=== PATIENT | female | born 1945 | race Caucasian/White ===

== ENCOUNTER 2020-01-03 10:02 | Outpatient (CLI) | payer MEDICARE, OTHER, SELFPAY ==
--- NOTE | ~2020-01-03 | MM_ITS ---
EXAMINATION: MM screening awais BI w eli HISTORY: Screening mammogram TECHNIQUE: Craniocaudal and mediolateral oblique 3-D tomosynthesis images were obtained and synthetic 2-D images were generated. CAD analysis was submitted and interpreted. COMPARISON: 09/08/2018, 01/06/2014, 01/04/2013, 12/08/2011 bilateral digital mammogram examinations BREAST PARENCHYMAL COMPOSITION: There are scattered areas of fibroglandular density. FINDINGS: Stable mild asymmetric density in the posterior aspect of the lower outer quadrant of the l eft breast. There is no evidence of suspicious mass, calcification, or architectural distortion to huerta ggest malignancy in either breast. There has been no suspicious interval change. IMPRESSION: 1. No mammographic evidence of malignancy. 2. Recommend routine screening mammography in one year. BI-RADS Category 2: Benign finding(s). Reviewed, dictated and finalized at location A.
== END 2020-01-03 10:03 | disposition home or self-care (01) ==
PROVIDERS: PCP Internal Medicine; Visit Provider Internal Medicine
DX: Z12.31 Encounter for screening mammogram for malignant neoplasm of breast (principal)
CPT/HCPCS: 77063; 77067

== ENCOUNTER 2020-06-15 07:51 | Outpatient (CLI) | payer MEDICARE, OTHER, SELFPAY ==
[2020-06-15 09:18] LABS: Alanine Aminotransferase 18 U/L (4-35); Albumin Level 4.4 g/dL (3.5-5.1); Alkaline Phosphatase 44 U/L (38-126); Anion Gap 5 mmol/L (8-16); Aspartate Amino Transferase 34 U/L (14-36); Bilirubin,Total 0.4 mg/dL (0.2-1.3); Blood Urea Nitrogen 12 mg/dL (7-17); Calcium 9.2 mg/dL (8.4-10.2); Carbon Dioxide 28 mmol/L (22-30); Chloride 100 mmol/L (98-107); Cholesterol 181 mg/dL (0-200); Estimated Glomerular Filt Rate > 60; Glucose 89 mg/dL (65-105); HDL Direct 85 mg/dL; Potassium 4.5 mmol/L (3.4-5.0); Sodium 133 mmol/L (137-145); Triglycerides 71 mg/dL (<150)
[2020-06-15 09:29] LABS: LDL Cholesterol Direct 73 mg/dL
== END 2020-06-15 07:52 | disposition home or self-care (01) ==
PROVIDERS: Family Provider Internal Medicine; PCP Internal Medicine; Visit Provider Internal Medicine
DX: E78.5 Hyperlipidemia, unspecified (principal); Z79.899 Other long term (current) drug therapy; I10 Essential (primary) hypertension; E03.9 Hypothyroidism, unspecified
CPT/HCPCS: 36415; 80053; 80061; 84443

== ENCOUNTER 2020-07-18 12:51 | Outpatient (CLI) | payer MEDICARE, OTHER, SELFPAY ==
--- NOTE | ~2020-07-18 | DEXA_ITS ---
Bone Density Report Name: Lorie Du Age: 75 Sex: Female Ethnicity: White Date of : 1945 Indication: postmenopausal osteoporosis; height loss; prior fracture; Referring Provider: Britney Lauren Study: Bone densitometry was performed. Exam Date: July 18, 2020 Accession number: [id number] Bone Density: Region BMD T-score Z-score Classification AP Spine (L1-L4) 0.717 -3.0 -0.6 Osteoporosis Femoral Neck (Left) 0.563 -2.6 -0.5 Osteoporosis Total Hip (Left) 0.718 -1.8 0.0 Osteopenia Total Hip Bilateral Avg 0.711 -1.9 -0.1 Osteopenia Femoral Neck (Right) 0.589 -2.3 -0.2 Osteopenia Total Hip (Right) 0.704 -2.0 -0.2 Osteopenia World Health Organization criteria for BMD impression classify patients as: Normal (T-score at or above -1.0), Osteopenia (T-score between -1.0 and -2.5), or Osteoporosis (T-score at or below -2.5). 10-year Fracture Risk: FRAX not reported because: Some T-score for Spine Total or Hip Total or Femoral Neck at or below -2.5 Previous Exams: Region Exam Age BMD T-score BMD Change BMD Change Date g/cm2 vs Baseline vs Previous AP Spine(L1-L4) 07/18/2020 75 0.717 -3.0 0.098(15.9%)# 0.021(3.0%) 12/04/2016 71 0.696 -3.2 0.078(12.6%)# 0.043(6.6%)# 12/04/2010 65 0.653 -3.6 0.035(5.6%)* 0.035(5.6%)* 12/01/2008 63 0.619 -3.9 Total Hip(Left) 07/18/2020 75 0.718 -1.8 0.012(1.7%)# -0.040(-5.2%)* 12/04/2016 71 0.758 -1.5 0.052(7.4%)# 0.039(5.4%)# 12/04/2010 65 0.719 -1.8 0.013(1.9%) 0.013(1.9%) 12/01/2008 63 0.706 -1.9 Total Hip(Right) 07/18/2020 75 0.704 -2.0 0.015(2.2%)# -0.027(-3.7%) 12/04/2016 71 0.731 -1.7 0.042(6.1%)# 0.038(5.6%)# 12/04/2010 65 0.692 -2.0 0.003(0.5%) 0.003(0.5%) 12/01/2008 63 0.689 -2.1 *Denotes significance at 95% confidence level, LSC for AP Spine = 0.022 g/cm2, LSC for Total Hip = 0.027 g/cm2 Clinical Information Provided by Patient: Has had a low trauma fracture Has used the following medications: Vitamin D, Calcium Patient maximum height was 64 Menopause Age: 39 Drinks caffeinated beverages Onset of menses at age 13 Number of children 3 Impression: The patient has established osteoporosis, based on the Total Spine T-score and the existence of a prior fracture. The patient has risk factors, including: previous fracture. The BMD for the Total Hip(Left) decreased, changing by -5.2% since the last DXA exam.
== END 2020-07-18 12:52 | disposition home or self-care (01) ==
LOC: ANHIMG 12:53
PROVIDERS: PCP Internal Medicine; Visit Provider Nurse Practitioner
DX: M81.0 Age-related osteoporosis without current pathological fracture (principal); M85.852 Other specified disorders of bone density and structure, left thigh; M85.851 Other specified disorders of bone density and structure, right thigh
CPT/HCPCS: 77080

== ENCOUNTER 2020-12-20 08:20 | Outpatient (CLI) | payer MEDICARE, OTHER, SELFPAY ==
[2020-12-20 09:03] LABS: Alanine Aminotransferase 20 U/L (4-35); Albumin Level 4.3 g/dL (3.5-5.1); Alkaline Phosphatase 64 U/L (38-126); Anion Gap 6 mmol/L (8-16); Aspartate Amino Transferase 32 U/L (14-36); Bilirubin,Total 0.2 mg/dL (0.2-1.3); Blood Urea Nitrogen 13 mg/dL (7-17); Calcium 9.5 mg/dL (8.4-10.2); Carbon Dioxide 28 mmol/L (22-30); Chloride 98 mmol/L (98-107); Cholesterol 187 mg/dL (0-200); Estimated Glomerular Filt Rate > 60; Glucose 87 mg/dL (65-110); HDL Direct 95 mg/dL; Potassium 4.4 mmol/L (3.4-5.0); Sodium 132 mmol/L (137-145); Triglycerides 42 mg/dL (<150)
[2020-12-20 09:13] LABS: LDL Cholesterol Direct 78 mg/dL
== END 2020-12-20 08:21 | disposition home or self-care (01) ==
PROVIDERS: PCP Internal Medicine; Visit Provider Nurse Practitioner
DX: E03.9 Hypothyroidism, unspecified (principal); E78.5 Hyperlipidemia, unspecified; E55.9 Vitamin D deficiency, unspecified; M81.0 Age-related osteoporosis without current pathological fracture
CPT/HCPCS: 36415; 80053; 80061; 82306; 84443

== ENCOUNTER 2021-04-10 08:57 | Inpatient (IN) | payer MEDICARE, OTHER, SELFPAY ==
[2021-04-10] VITALS (27 sets, daily range): BP systolic 96–118; BP diastolic 50–70; PULSE 65–75; RESP 16–24; TEMP 36.5–36.7; O2SAT 94–98; BMI 23.3
--- NOTE | ~2021-04-10 | XR_ITS ---
EXAMINATION: XR chest 1V portable EXAM DATE: 04/10/2021 09:34 INDICATION: Cough, weakness. TECHNIQUE: Portable AP frontal chest x-ray was obtained. Comparison is made to prior examination from 12/15/2012. FINDINGS The cardiomediastinal silhouette is prominent but magnified on this AP technique. Moderate a mount of diffusely indistinct reticulation new compared to 2013, could be edema or atypical pneumonia . Some component of chronic interstitial lung disease not excludable. No pneumothorax or pleural effu marianne. There is a dual lead pacemaker/AICD seen with leads projecting over the expected locations of t he right atrial appendage and right ventricle. There is aortic arteriosclerosis. The bones are osteop enic. There are bony degenerative changes. IMPRESSION: Moderate amount of bilateral abnormal reticulation, could be atypical pneumonia or edema . Reviewed, dictated and finalized at location A. EGE TEACHER IMPRESSION: Moderate amount of bilateral abnormal reticulation, could be atypi scott pneumonia or edema.
--- NOTE | 2021-04-10 09:23 | ED.GENADULT ---
HPI - General Adult General Chief complaint: Unspecified Stated complaint: don't feel good Time Seen by Provider: 04/10/21 09:09 Source: RN notes reviewed History of Present Illness HPI narrative: Patient presents emergency department from home for fever. Patient states that she has been having subjective fevers and chills for the past 5 days with a measured temperature this morning of 102.5 states that she did take Tylenol this morning. She states that with that she has had a mild cough she denies any rhinorrhea or sore throat denies any abdominal pain. States she has had some intermittent nausea vomiting she denies any diarrhea. Patient denies having any chest pain or shortness of Related Data Allergies Allergy/AdvReac Type Severity Reaction Status Date / Time No Known Allergies Allergy Mild Verified 01/24/21 10:36 Review of Systems Review of Systems: Gen.: D see HPI ENT: Denies congestion Respiratory: Denies shortness of breath or cough CV: Denies chest pain or palpitations GI: Denies abdominal pain reports intermittent nausea denies vomiting Musculoskeletal: Denies back pain or muscle pain Neuro: Denies numbness, tingling, weakness or focal weakness Skin: Denies rash Except as documented, all other systems reviewed and negative ON LICENSE OF [facility] Past Medical History Medical History Age-related osteoporosis without current pathological fracture Essential hypertension History of histoplasmosis Hypothyroidism, unspecified Vitamin D deficiency Family History Family History Sibling Patient's sister is in good health Carcinoma of colon Family history of coronary artery disease Father Cerebrovascular accident Mother Acute myocardial infarction, Onset Age: 84 Family history of diabetes mellitus in first degree relative Other Family history of lymphoma Social History Social History Smoking status: Never smoker Second hand tobacco smoke exposure: No Alcohol intake: never Exam Narrative: APPEARANCE: No acute distress, nontoxic, resting in bed EYES: EOMI HEENT: Normocephalic, atraumatic, OMM RESPIRATORY: No respiratory distress Clear to auscultation bilaterally with no rhonchi wheezing or rales. CARDIOVASCULAR: Regular rate and rhythm without murmurs rubs or gallops. ABDOMINAL: Soft, nontender, nondistended, no rebound or guarding MUSCULOSKELETAl: Moves all extremities. No clubbing, cyanosis or edema. NEURO: Awake and alert. Following commands, speech normal, no focal deficits SKIN:: Warm, dry. No rashes lesions or abrasions PSYCHIATRIC: Normal affect/mood, Course Course Emergency Course: Discussed with SAUL Coppola for Dr Alvarado presentation work-up agrees with admission at this time agrees with plan to test for Covid Discussed with patient and family results of workup and diagnosis. Discussed need for admission. Patient and family understand and agree to current treatment plan Vital Signs Vital signs: Vital Signs Temperature 97.7 F 04/10/21 09:22 Pulse Rate 75 04/10/21 09:22 Respiratory Rate 20 04/10/21 09:22 Blood Pressure 102/55 L 04/10/21 09:22 Pulse Oximetry 96 04/10/21 09:22 Temperature 97.7 F 04/10/21 09:22 Pulse Rate 75 04/10/21 09:22 Respiratory Rate 20 04/10/21 09:22 Blood Pressure 102/55 L 04/10/21 09:22 Pulse Oximetry 96 04/10/21 09:22 Medical Decision Making Vital Signs Vital Signs: Vital Signs Temperature 97.7 F 04/10/21 09:22 Pulse Rate 75 04/10/21 09:22 Respiratory Rate 20 04/10/21 09:22 Blood Pressure 102/55 L 04/10/21 09:22 Pulse Oximetry 96 04/10/21 09:22 Temperature 97.7 F 04/10/21 09:22 Pulse Rate 75 04/10/21 09:22 Respiratory Rate 20 04/10/21 09:22 Blood Pressure 102/55 L 04/10/21 09:22 Pulse Oximetry 96 04/10/21 09:22 Lab Data Result
[2021-04-10 10:51] LABS: Bilirubin Urine 1+ (Negative); Blood Urine 1+ (Negative); Glucose Urine UA Negative (Negative); Ketones Urine 1+ mg/dL (Negative); Leukocyte Esterase Ur Trace LEU/UL (Negative); Nitrate Urine Negative (Negative); Protein Urine 1+ mg/dL (Negative); Urobilinogen Urine 0.2 mg/dL (<2.0); pH Urine 6.5 (5.0-9.0)
[2021-04-10 10:58] LABS: Add Urine Microscopic? YES; Appearance Urine Sl Cloudy (Clear); Color Urine Dark Yellow (Yellow)
[2021-04-10 11:00] LABS: Alanine Aminotransferase 18 U/L (4-35); Albumin Level 3.7 g/dL (3.5-5.1); Alkaline Phosphatase 51 U/L (38-126); Anion Gap 10 mmol/L (8-16); Aspartate Amino Transferase 27 U/L (14-36); Bilirubin,Total 0.4 mg/dL (0.2-1.3); Blood Urea Nitrogen 15 mg/dL (7-17); Calcium 8.7 mg/dL (8.4-10.2); Carbon Dioxide 22 mmol/L (22-30); Chloride 95 mmol/L (98-107); Estimated CRCL calculation 39 ml/min; Estimated Glomerular Filt Rate > 60; Glucose 107 mg/dL (65-110); Sodium 127 mmol/L (137-145)
[2021-04-10 11:03] LABS: Hyaline Casts Urine 30-49 /lpf; Mucus Urine Moderate /lpf; Squamous Epithelial Cell Urine Few /hpf (Few)
[2021-04-10 11:06] LABS: Bacteria Urine 1+ /hpf
[2021-04-10 11:07] LABS: Lactic Acid Reflex 1.2 mmol/L (0.7-2.1)
[2021-04-10 11:09] LABS: NT Pro B Type Natriuretic Pept 1770 pg/mL (5-100)
[2021-04-10 11:18] LABS: Hematocrit 30.8 % (37.0-47.0); Hemoglobin 10.5 g/dL (12.0-15.0); Mean Corpuscular HGB Conc 34.1 g/dl (32-36); Mean Corpuscular Hemoglobin 30.7 pg (26-34); Mean Corpuscular Volume 90.1 fl (80-100); Mean Platelet Volume 9.9 fl (7.4-10.4); Platelet Count Result 173 k/mm3 (150-375); Red Blood Count 3.42 M/mm3 (4.2-5.4); Red Cell Distribution Width 14.1 % (11.5-14.5); White Blood Count 10.1 K/mm3 (4.5-10.0)
[2021-04-10] MEDS: SODIUM CHLORIDE 0.9% IV 1,000 ML 999 ML IV CONT (11:27)
[2021-04-10 11:30] LABS: Partial Thromboplastin Time 30.7 SECONDS (22.3-36.8)
[2021-04-10 11:41] LABS: Band Neutrophils Percent 18 % (0-6); Monocytes Percent Manual 5 % (3-9); Neutrophils Absolute Manual 9.29 K/mm3 (1.7-7.2); Neutrophils Percent Manual 74 % (46-73); Platelet Estimate Adequate (Adequate); Total Cells Counted 100
--- NOTE | 2021-04-10 13:00 | PC.NURSE ---
Called pharmacy x2 for azithromycin to start, has not called back or sent, charge nurse aware
--- NOTE | 2021-04-10 13:56 | PC.NURSE ---
Report given to Alisa KRAFT, no further questions or concerns informed her Azithromycin not started bc haven't received from pharmacy
--- NOTE | 2021-04-10 14:18 | PC.NURSE ---
CAROL soto states he is taking pt to room 331
[2021-04-10 18:05] LABS: Anion Gap 4 mmol/L (8-16); Blood Urea Nitrogen 12 mg/dL (7-17); Carbon Dioxide 25 mmol/L (22-30); Chloride 96 mmol/L (98-107); Estimated CRCL calculation 49 ml/min; Estimated Glomerular Filt Rate > 60; Glucose 136 mg/dL (65-110); Potassium 3.5 mmol/L (3.4-5.0); Sodium 125 mmol/L (137-145)
--- NOTE | 2021-04-10 19:19 | PM.IMHP ---
H&P: HPI History of Present Illness Date/Time: 04/10/21 19:19 this is a 76-year-old female patient who has been running a fever for the last 5 days. She had a T-max of 102.5?. She stated that she has had COVID in the past and she has had the full vaccine with [employer] plus the booster. The patient stated that she took Tylenol this morning and she has had a mild cough. She denies any sore throat or runny nose. She has had intermittent nausea and vomiting but no diarrhea. The patient has not had any urinary symptoms. Her white count is only mildly elevated at 10.1. Her H&H is 10.5 and 30.8. The patient stated that she just feels fatigued. Her band neutrophils 18 neutrophils 74. Sodium level 127 and then 125. Her glucose 136. Calcium is 8.0. COVID test is pending. There is only trace leukocyte Estrace in the urine. Chest x-ray was read as moderate amount of bilateral abnormal reticulation could be atypical pneumonia or edema. The patient was started on IV fluid, Rocephin, and azithromycin. The patient is being admitted to observation status on the date of service of 04/10/2021. Chief Complaint: Fever Review of Systems Review of Systems: All systems reviewed & are unremarkable except as noted in HPI and below Constitutional: Constitutional: Reports as per HPI and Reports no additional constitutional complaints Eyes: Eyes: Reports as per HPI and Reports no additional eye complaints ENT: Reports system reviewed and no additional complaints, except as documented and Reports Normal hearing present Cardiovascular: Cardiovascular: Reports no additional cardiovascular complaints Respiratory: Respiratory: Reports no additional respiratory complaints and Reports no additional respiratory complaints Gastrointestinal: Gastrointestinal: Reports as per HPI and Reports no additional gastrointestinal complaints Musculoskeletal: Musculoskeletal: Reports no additional musculoskeletal complaints Integumentary/Breasts: Skin/Breast: Reports system reviewed and no additional complaints, except as docu and Reports as per HPI Neurologic: Reports system reviewed and no additional complaints, except as documented, Reports as per HPI and Reports Normal hearing present Psychiatric: Psychiatric: Reports no additional psychiatric complaints and Reports as per HPI Endocrine: Endocrine: Reports no additional endocrine complaints Hematologic/Lymphatic: Hematologic/Lymphatic: Reports no additional hematologic/lymphatic complaints Allergic/Immunologic: Allergic/Immunologic: Reports no additional allergic/immunologic complaints [facility] Past Medical History Medical History (Updated 04/10/21 @ 19:48 by Anat Saleh NP) Acute UTI Age-related osteoporosis without current pathological fracture Bronchitis Cough Essential hypertension History of histoplasmosis Hypothyroidism, unspecified Overweight (04/18/15) Vitamin D deficiency Weakness White coat syndrome with high blood pressure but without hypertension Surgical History Surgical History (Updated 04/10/21 @ 19:39 by Anat Saleh NP) History of cataract extraction S/P ORIF (open reduction internal fixation) fracture Left wrist Status cardiac pacemaker Family History Family History (Updated 04/10/21 @ 19:38 by Anat Saleh NP) Sibling Patient's sister is in good health Carcinoma of colon Family history of coronary artery disease Father Cerebrovascular accident Mother Acute myocardial infarction, Onset Age: 84 Family history of diabetes mellitus in first degree relative Son Lymphoma Remission Daughter Lymphoma Cc00 Other Family history of lymphoma Social History Social History (Updated 04/10/21 @ 19:40 by Anat Saleh NP) Social History: The patient had 2 children a son and daughter and the daughter's past. She is retired from farming. She lives with her who is the durable power of health care attorney for healthcare. Patient is lifelong nonsmoke
[2021-04-10] MEDS: SODIUM CHLORIDE 0.9% IV 1,000 ML 75 ML IV CONT (22:14)
[2021-04-10 22:24] LABS: Anion Gap 4 mmol/L (8-16); Blood Urea Nitrogen 12 mg/dL (7-17); Calcium 8.3 mg/dL (8.4-10.2); Carbon Dioxide 25 mmol/L (22-30); Chloride 95 mmol/L (98-107); Estimated CRCL calculation 49 ml/min; Estimated Glomerular Filt Rate > 60; Glucose 91 mg/dL (65-110); Potassium 3.4 mmol/L (3.4-5.0); Sodium 124 mmol/L (137-145)
[2021-04-11] VITALS: BP 120/62; PULSE 60; RESP 20; TEMP 36.6; O2SAT 93
[2021-04-11 04:00] VITALS: BP 143/74; PULSE 60; RESP 20; TEMP 36.4; O2SAT 96
[2021-04-11 04:11] LABS: Sodium Urine Random 11 meq/L
[2021-04-11] MEDS: LEVOTHYROXINE SODIUM 50 MCG TABLET PO (06:18)
[2021-04-11 07:08] LABS: Basophils Percent Auto 0.2 % (0.2-1.2); Eosinophils Absolute Auto 0.3 K/mm3 (0-0.3); Eosinophils Percent Auto 5.7 % (0-4.4); Hematocrit 30.8 % (37.0-47.0); Hemoglobin 10.5 g/dL (12.0-15.0); Immature Granulocyte Absolute 0.02 K/mm3 (0.00-0.031); Immature Granulocyte Percent A 0.4 % (0-0.5); Lymphocytes Absolute Auto 0.83 K/mm3 (0.9-3.2); Lymphocytes Percent Auto 17.6 % (18.3-44.2); Mean Corpuscular HGB Conc 34.1 g/dl (32-36); Mean Corpuscular Hemoglobin 29.8 pg (26-34); Mean Corpuscular Volume 87.5 fl (80-100); Mean Platelet Volume 9.8 fl (7.4-10.4); Monocytes Absolute Auto 0.4 K/mm3 (0.1-0.6); Monocytes Percent Auto 7.4 % (2.6-8.5); Neutrophils Absolute Auto 3.2 K/mm3 (1.3-6.7); Neutrophils Percent Auto 68.7 % (45.5-73.1); Platelet Count Result 199 k/mm3 (150-375); Red Blood Count 3.52 M/mm3 (4.2-5.4); Red Cell Distribution Width 14.1 % (11.5-14.5); White Blood Count 4.7 K/mm3 (4.5-10.0)
[2021-04-11 07:44] LABS: Alanine Aminotransferase 16 U/L (4-35); Albumin Level 3.2 g/dL (3.5-5.1); Alkaline Phosphatase 46 U/L (38-126); Anion Gap 4 mmol/L (8-16); Aspartate Amino Transferase 21 U/L (14-36); Bilirubin,Total 0.3 mg/dL (0.2-1.3); Blood Urea Nitrogen 10 mg/dL (7-17); Calcium 9.1 mg/dL (8.4-10.2); Carbon Dioxide 28 mmol/L (22-30); Chloride 101 mmol/L (98-107); Estimated CRCL calculation 49 ml/min; Estimated Glomerular Filt Rate > 60; Glucose 88 mg/dL (65-110); Lipase 37 U/L (23-300); Magnesium 1.7 mg/dL (1.6-2.3); Potassium 3.4 mmol/L (3.4-5.0); Sodium 133 mmol/L (137-145)
--- NOTE | 2021-04-11 07:51 | PM.IMPN ---
Progress Note: A&P Assessment and Plan (1) Community acquired pneumonia: Code(s): J18.9 - Pneumonia, unspecified organism Status: Acute Assessment and Plan: CXR with reticular pattern concerning for possible atyical pneumonia. BCX w/ NG. COVID 19 PCR Negative. -Will switch ceftriaxone-->Augmentin 875 mg BID -Continue azithromycin but change to oral. (2) Acute hyponatremia: Code(s): E87.1 - Hypo-osmolality and hyponatremia Status: Acute Assessment and Plan: Hyponatremia likely 2/2 to pneumonia. Sodium 133 this morning with resolution of patient weakness. --F/U urine studies (3) Hypothyroidism, unspecified: Code(s): E03.9 - Hypothyroidism, unspecified Status: Acute Assessment and Plan: TSH 1.21 and on levothyroxine 50 mcg daily. -Continue home levothyroxine. (4) Status cardiac pacemaker: Code(s): Z95.0 - Presence of cardiac pacemaker Status: Acute Assessment and Plan: Chronic (5) Suspected COVID-19 virus infection: Code(s): Z20.822 - Contact with and (suspected) exposure to COVID-19 Status: Acute Assessment and Plan: COVID 19 PCR is negative. -Discontinue droplet precautions (6) Hyperlipidemia LDL goal <100: Code(s): E78.5 - Hyperlipidemia, unspecified Status: Acute Assessment and Plan: Continue with home atorvastation. Subjective Date/time seen: Date of Service 04/11/21 07:51 Patient says she feels great other than a slight cough. Denies fever, chills, night sweats. Review of Systems Constitutional: Constitutional: Denies excessive sweating Respiratory: Respiratory: Denies chest congestion, Reports cough and Denies dyspnea Exam Narrative: GENERAL: NAD, cooperative HEENT: Normocephalic, atraumatic, anicteric, nares clear, oropharynx moist and clear, dentition ok NECK: Supple CV: Normal S1, S2, RRR, No MRG RESP: Crackles to L. base. R. clear to auscultation Abdomen: Soft, non-tender, non-distended, +BS EXTREMITIES: Warm and well perfused, no clubbing, cyanosis, or edema. +2 Distal pulses bilaterally. SKIN: warm, dry and intact. NEURO:CN 2-12 grossly intact. Objective Data Vital Signs Vital Signs: Vital Signs - 24 hr 04/10/21 09:22 04/10/21 11:26 04/10/21 11:30 Temperature 97.7 F Pulse Rate 75 67 70 Respiratory Rate 20 21 H 20 Blood Pressure 102/55 L 104/52 L Pulse Oximetry 96 96 94 04/10/21 11:31 04/10/21 11:45 04/10/21 11:46 Temperature Pulse Rate 67 70 68 Respiratory Rate 20 20 21 H Blood Pressure 112/53 L Pulse Oximetry 94 96 96 04/10/21 12:00 04/10/21 12:01 04/10/21 12:15 Temperature Pulse Rate 68 67 66 Respiratory Rate 19 21 H 24 H Blood Pressure 113/53 L Pulse Oximetry 96 95 96 04/10/21 12:16 04/10/21 12:30 04/10/21 12:31 Temperature Pulse Rate 69 69 68 Respiratory Rate 22 H 24 H 22 H Blood Pressure 118/50 L 109/52 L Pulse Oximetry 96 98 98 04/10/21 12:45 04/10/21 12:46 04/10/21 13:00 Temperature Pulse Rate 70 69 75 Respiratory Rate 22 H 22 H Blood Pressure 96/70 L Pulse Oximetry 97 97 04/10/21 13:05 04/10/21 13:15 04/10/21 13:26 Temperature Pulse Rate 65 66 67 Respiratory Rate 22 H 23 H 22 H Blood Pressure 113/56 L Pulse Oximetry 97 04/10/21 13:56 04/10/21 14:00 04/10/21 14:01 Temperature Pulse Rate 72 68 67 Respiratory Rate 18 23 H Blood Pressure 107/58 L Pulse Oximetry 97 96 04/10/21 14:15 04/10/21 14:16 04/10/21 14:40 Temperature Pulse Rate 65 66 Respiratory Rate 22 H 23 H Blood Pressure 106/53 L Pulse Oximetry 98 97 94 04/10/21 14:52 04/10/21 14:56 04/10/21 20:00 Temperature 98.0 F 98.0 F 97.9 F Pulse Rate 67 67 67 Respiratory Rate 16 16 20 Blood Pressure 100/55 L 100/55 L 105/59 L Pulse Oximetry 94 94 95 04/11/21 00:00 04/11/21 04:00 Temperature 98 F 97.5 F L Pulse Rate 60 60 Respiratory Rate 20 20 Blood Pressure 120/62 143/74 H Pulse Oximetr
[2021-04-11 08:00] VITALS: BP 126/57; PULSE 61; RESP 18; TEMP 36.2; O2SAT 99
[2021-04-11 08:09] LABS: Lactate Dehydrogenase 347 U/L (313-618)
[2021-04-11] MEDS: POTASSIUM CHLORIDE 20 MEQ TABLET 40 MEQ PO (09:13)
[2021-04-11] MEDS: CALCIUM CARBONATE (TUMS) 500 MG (200 MG ELEMENTAL) PO (09:14)
[2021-04-11] MEDS: CHOLECALCIFEROL 1,000 UNITS TABLET 2000 UNITS PO (09:14)
[2021-04-11] MEDS: MULTIVITAMINS THERAPEUTIC TAB (*BKC) 2 TABLET BY MOUTH (09:14)
[2021-04-11] MEDS: ATORVASTATIN 10 MG TABLET BY MOUTH (09:15)
[2021-04-11] MEDS: ENOXAPARIN 40 MG/0.4 ML SYRINGE SUB-Q (09:15)
[2021-04-11 12:00] VITALS: BP 139/63; PULSE 59; RESP 16; TEMP 36.6; O2SAT 99
[2021-04-11] MEDS: POTASSIUM CHLORIDE 20 MEQ TABLET PO (12:31)
[2021-04-11 15:23] LABS: SARS-CoV-2 RNA PCR Negative
--- NOTE | 2021-04-11 16:47 | PM.DS ---
DS: Admitting Diagnosis Discharge Date 04/11/2021 Admitting Diagnosis Weakness DS: Discharge Diagnosis Discharge Diagnosis (1) Community acquired pneumonia: Code(s): J18.9 - Pneumonia, unspecified organism Status: Acute Assessment and Plan: CXR with reticular pattern concerning for possible atyical pneumonia. BCX w/ NG. COVID 19 PCR Negative. -Will switch ceftriaxone-->Augmentin 875 mg BID -Continue azithromycin but change to oral. (2) Acute hyponatremia: Code(s): E87.1 - Hypo-osmolality and hyponatremia Status: Acute Assessment and Plan: Hyponatremia likely 2/2 to pneumonia. Sodium 133 this morning with resolution of patient weakness. --F/U urine studies (3) Hypothyroidism, unspecified: Code(s): E03.9 - Hypothyroidism, unspecified Status: Acute Assessment and Plan: TSH 1.21 and on levothyroxine 50 mcg daily. -Continue home levothyroxine. (4) Hyperlipidemia LDL goal <100: Code(s): E78.5 - Hyperlipidemia, unspecified Status: Acute Assessment and Plan: Continue with home atorvastation. (5) Status cardiac pacemaker: Code(s): Z95.0 - Presence of cardiac pacemaker Status: Acute Assessment and Plan: Chronic (6) Suspected COVID-19 virus infection: Code(s): Z20.822 - Contact with and (suspected) exposure to COVID-19 Status: Acute Assessment and Plan: COVID 19 PCR is negative. -Discontinue droplet precautions DS: Summary Hospital Course Hospital Course: Patient presented to the ED after 5 days of weakness and fever. CXR noted to have a reticular pattern suggestive of possible pneumonia. There was a mild leukocytosis with a left shift. Patient tested for COVID 19 due to symptoms and admitted. Patient leukocytosis resolved and her secondary hyponatremia improved. COVID 19 PCR was negative. Patient discharged with augmentin, azithromycin and an inhaler. Patient was advised to follow up with her primary care physician early the next week after discharge. Time Spent with Patient Time attestation: Total time spent providing and/or coordinating discharge services: 30 Exam Narrative: GENERAL: NAD, cooperative HEENT: Normocephalic, atraumatic, anicteric, nares clear, oropharynx moist and clear, dentition ok NECK: Supple CV: Normal S1, S2, RRR, No MRG RESP: Crackles to L. base. R. clear to auscultation Abdomen: Soft, non-tender, non-distended, +BS EXTREMITIES: Warm and well perfused, no clubbing, cyanosis, or edema. +2 Distal pulses bilaterally. SKIN: warm, dry and intact. NEURO:CN 2-12 grossly intact. DS: Data Data Completed and Pending Labs on day of discharge: Labs from last 24 hours 04/11/21 04/11/21 04/11/21 06:39 06:39 06:39 WBC 4.7 RBC 3.52 L Hgb 10.5 L Hct 30.8 L MCV 87.5 MCH 29.8 MCHC 34.1 RDW 14.1 Plt Count 199 MPV 9.8 Immature Gran % (Auto) 0.4 Neut % (Auto) 68.7 Lymph % (Auto) 17.6 L [place] % (Auto) 7.4 Eos % (Auto) 5.7 H Baso % (Auto) 0.2 Lymph # (Auto) 0.83 L [place] # (Auto) 0.4 Eos # (Auto) 0.3 Baso # (Auto) 0.0 Abs Immat Gran (auto) 0.02 Absolute Neuts (auto) 3.2 Absolute Nucleated RBC 0.0 Nucleated RBC % 0.0 Sodium 133 L Potassium 3.4 Chloride 101 Carbon Dioxide 28 Anion Gap 4 L BUN 10 Creatinine 0.70 Estim Creat Clear Calc 49 Estimated GFR > 60 Glucose 88 Lactic Acid Calcium 9.1 Magnesium 1.7 Ferritin 102.00 Total Bilirubin 0.3 AST 21 ALT 16 Alkaline Phosphatase 46 Lactate Dehydrogenase 347 Total Protein 6.0 L Albumin 3.2 L Lipase 37 TSH (Reflex) 1.210 Urine Osmolality Ur Random Sodium SARS-CoV-2 RNA (RT-PCR) 04/11/21 04/11/21 04/11/21 06:39 03:03 03:03 WBC RBC Hgb Hct MCV MCH MCHC RDW Plt Count MPV Immature Gran % (Auto) Neut % (Auto) Lymph % (Auto
[2021-04-14 05:01] LABS: Osmolality, Urine 113 mOsm/kg (50-1200)
== END 2021-04-11 17:50 | disposition home or self-care (01) | DRG 194 ==
LOC: ANHED 12:37 → ANH3MEDSUR 12:46
PROVIDERS: Nurse Practitioner; Admitting Provider Internal Medicine; Emergency Provider Emergency Medicine; PCP Internal Medicine; Visit Provider Family Medicine
DX: J18.9 Pneumonia, unspecified organism (principal); E87.1 Hypo-osmolality and hyponatremia; Z20.822 Contact with and (suspected) exposure to COVID-19; E03.9 Hypothyroidism, unspecified; E78.5 Hyperlipidemia, unspecified; M81.0 Age-related osteoporosis without current pathological fracture; I10 Essential (primary) hypertension; E55.9 Vitamin D deficiency, unspecified; Z95.0 Presence of cardiac pacemaker; Z98.42 Cataract extraction status, left eye; Z98.41 Cataract extraction status, right eye
CPT/HCPCS: 36415; 71045; 80048; 80053; 81001; 82728; 83605; 83615; 83690; 83735; 83880; 83935; 84300; 84443; 85025; 85610; 85730; 87040; 87804; 96361; 96365; 96372; 99285; A9270; C9803; G0378; J0456; J0696; J1650; J7030; U0003; U0005

== ENCOUNTER 2021-04-19 13:52 | Outpatient (CLI) | payer MEDICARE, OTHER, SELFPAY ==
--- NOTE | ~2021-04-19 | XR_ITS ---
EXAMINATION: XR chest 2V DATE: 04/19/2021 14:13 INDICATION: Pneumonia, unspecified organism. TECHNIQUE: Frontal and lateral views of the chest were obtained. COMPARISON: Chest single view 04/10/2021 FINDINGS: Marianela B-lines are noted, consistent with mild pulmonary edema. No pleural effusion or pneu mothorax. The heart size is normal. There is a left chest wall pacer with leads in the right atrium a nd right ventricle. IMPRESSION: 1. Mild pulmonary edema. Reviewed, dictated and finalized at location A. E REPORT DEVELOPER IMPRESSION: 1. Mild pulmonary edema.
== END 2021-04-19 13:53 | disposition home or self-care (01) ==
LOC: ANHIMG 13:54
PROVIDERS: PCP Internal Medicine; Visit Provider Internal Medicine
DX: J81.1 Chronic pulmonary edema (principal)
CPT/HCPCS: 71046

== ENCOUNTER 2021-07-05 09:23 | Outpatient (CLI) | payer MEDICARE, OTHER, SELFPAY ==
[2021-07-05 10:20] LABS: Alanine Aminotransferase 17 U/L (4-35); Albumin Level 4.3 g/dL (3.5-5.1); Alkaline Phosphatase 61 U/L (38-126); Anion Gap 7 mmol/L (8-16); Aspartate Amino Transferase 33 U/L (14-36); Bilirubin,Total 0.4 mg/dL (0.2-1.3); Blood Urea Nitrogen 15 mg/dL (7-17); Calcium 9.6 mg/dL (8.4-10.2); Carbon Dioxide 28 mmol/L (22-30); Chloride 102 mmol/L (98-107); Cholesterol 223 mg/dL (0-200); Estimated Glomerular Filt Rate > 60; Glucose 89 mg/dL (65-110); HDL Direct 88 mg/dL; Potassium 4.3 mmol/L (3.4-5.0); Sodium 137 mmol/L (137-145); Triglycerides 54 mg/dL (<150)
[2021-07-05 10:32] LABS: LDL Cholesterol Direct 85 mg/dL
== END 2021-07-05 09:24 | disposition home or self-care (01) ==
LOC: ANHLAB 09:25
PROVIDERS: PCP Internal Medicine; Visit Provider Internal Medicine
DX: E03.9 Hypothyroidism, unspecified (principal); I10 Essential (primary) hypertension; Z79.899 Other long term (current) drug therapy; E78.5 Hyperlipidemia, unspecified
CPT/HCPCS: 36415; 80053; 80061; 84443

== ENCOUNTER 2022-01-02 09:37 | Outpatient (CLI) | payer MEDICARE, OTHER, SELFPAY ==
[2022-01-02 10:26] LABS: Alanine Aminotransferase 15 U/L (6-35); Albumin Level 4.3 g/dL (3.5-5.1); Alkaline Phosphatase 71 U/L (38-126); Anion Gap 6 mmol/L (8-16); Aspartate Amino Transferase 30 U/L (14-36); Bilirubin,Total 0.3 mg/dL (0.2-1.3); Blood Urea Nitrogen 14 mg/dL (7-17); Calcium 9.1 mg/dL (8.4-10.2); Carbon Dioxide 30 mmol/L (22-30); Chloride 96 mmol/L (98-107); Cholesterol 178 mg/dL (0-200); Estimated Glomerular Filt Rate > 60; Glucose 92 mg/dL (65-110); HDL Direct 73 mg/dL; Potassium 4.3 mmol/L (3.4-5.0); Sodium 132 mmol/L (137-145); Triglycerides 84 mg/dL (<150)
[2022-01-02 10:37] LABS: LDL Cholesterol Direct 72 mg/dL
== END 2022-01-02 09:38 | disposition home or self-care (01) ==
LOC: ANHLAB 09:40
PROVIDERS: PCP Internal Medicine; Visit Provider Internal Medicine
DX: I10 Essential (primary) hypertension (principal); Z79.899 Other long term (current) drug therapy; E78.5 Hyperlipidemia, unspecified; E55.9 Vitamin D deficiency, unspecified; E03.9 Hypothyroidism, unspecified
CPT/HCPCS: 36415; 80053; 80061; 82306; 84443

== ENCOUNTER 2022-01-14 09:35 | Outpatient (CLI) | payer MEDICARE, OTHER, SELFPAY ==
--- NOTE | ~2022-01-14 | NM_ITS ---
EXAMINATION: NM bone scan whole body DATE: 01/14/2022 14:26 INDICATION: Osteoporosis TECHNIQUE: 24.7 mCi Tc-99m HDP was administered intravenously. Delayed whole-body scintigrams were o btained. COMPARISON: Lumbar spine CT dated 01/14/2022 and chest radiograph dated 04/19/2021 CT FINDINGS: Mild lumbar dextrocurvature. Moderate increased uptake associated with severe facet osteoarthritis on the left at L4-L5 and ad L5-S1 mild uptake associated with severe facet osteoarthritis on the right at T11-T12 as evident on the CT images of the lumbar spine. Likely degenerative joint centered uptake at the right acromioclavicular joint, right wrist, right ankle and bilateral mid feet and at the sec ond joints at the left side of the mid cervical spine. Moderate increased uptake diffusely through a midthoracic vertebral body, likely T7 likely related to a recent compression fracture with thoracic k yphosis and few chronic chronic compression fractures in the lower thoracic spine seen on the prior g rafts. No evident bone uptake associated with a likely benign lytic lesion with well-defined thin scl erotic margins at the medial side of the right iliac crest. IMPRESSION: 1. Diffuse uptake through a midthoracic vertebral body, likely T7 most likely related to a recent com pression fracture with several chronic compression fractures evident in the lower thoracic spine on p rior radiographs and which are without increased uptake in the current study. If clinically indicated could consider radiographs or CT of the thoracic spine to assess for interval change since the prior chest radiograph. 2. Additional scattered foci of likely degenerative joint centered uptake as detailed above. No lesio n suspicious for metastatic disease. Reviewed, dictated and finalized at location A. IMPRESSION: 1. Diffuse uptake through a midthoracic vertebral body, likely T7 most likely r elated to a recent compression fracture with several chronic compression fractu res evident in the lower thoracic spine on prior radiographs and which are with out increased uptake in the current study. If clinically indicated could consid er radiographs or CT of the thoracic spine to assess for interval change since the prior chest radiograph. 2. Additional scattered foci of likely degenerative joint centered uptake as de tailed above. No lesion suspicious for metastatic disease.
--- NOTE | ~2022-01-14 | CT_ITS ---
EXAMINATION: CT lumbar spine wo con DATE: 01/14/2022 10:45 INDICATION: Age-related osteoporosis with current vertebral pathologic fracture. TECHNIQUE: Computed tomography (CT) of the lumbar spine was performed without intravenous contrast. A utomated exposure control and iterative reconstruction technique were employed. The dose-length produ ct was 683.82 mGy-cm. COMPARISON: Lumbar spine radiographs 09/09/16 FINDINGS: Partially visualized are cysts in the liver measuring up to at least 9 cm. There is 16 degr ees dextroscoliosis of thoracolumbar spine. There is a chronic compression fracture of T12 with 2/5 l oss of height. Intervertebral disc heights are normal. In right ilium, there is a 2.7 cm nonaggressiv e lytic lesion with sclerotic margin, likely benign. The following disc levels are specifically discu ssed: L1-L2: The disc does not extend beyond the endplate margin. There is mild bilateral facet joint osteo arthritis. There is no neural foraminal stenosis. There is no central canal stenosis. L2-L3: The disc is bulging. There is mild right and moderate left facet joint osteoarthritis. There i s mild bilateral neural foraminal stenosis. There is no central canal stenosis. L3-L4: The disc is bulging. There is severe bilateral facet joint osteoarthritis. There is mild bilat eral neural foraminal stenosis. There is mild central canal stenosis. L4-L5: The disc is bulging. There is severe right and moderate left facet joint osteoarthritis. There is mild bilateral neural foraminal stenosis. There is mild central canal stenosis. L5-S1: The disc is bulging. There is severe bilateral facet joint osteoarthritis. There is mild bilat eral neural foraminal stenosis. There is mild central canal stenosis. IMPRESSION: 1. Mild lumbar spondylosis. 2. Thoracolumbar dextroscoliosis. Reviewed, dictated and finalized at location A.
== END 2022-01-14 09:36 | disposition home or self-care (01) ==
PROVIDERS: PCP Internal Medicine; Visit Provider Pain Medicine Pain Medicine
DX: M80.08XA Age-related osteoporosis with current pathological fracture, vertebra(e), initial encounter for fracture (principal); M47.896 Other spondylosis, lumbar region
CPT/HCPCS: 72131; 78306; A9561

== ENCOUNTER 2022-04-08 09:20 | Outpatient (CLI) | payer MEDICARE, OTHER, SELFPAY ==
--- NOTE | ~2022-04-08 | XR_ITS ---
XR lumbar spine 2-3V DATE: 04/08/2022 09:49 INDICATION: Low back pain. No recent injury. TECHNIQUE: AP, lateral, coned lateral lumbosacral views COMPARISON: 01/14/2022 CT lumbar spine FINDINGS: Prominent diffuse osteopenia. Moderate dextro scoliosis of the lumbar spine. Chronic T12 compression fracture deformity. No lumbar spine recent fracture is evident. No bone destruction is detected. Included lower thoracic and lumbar pedicles appear intact Lumbar and lumbosacral interspaces appear relatively well preserved. No spondylolisthesis.. The sacro iliac joints are intact. There is extensive calcification of the abdominal aorta, without evidence of aneurysm. IMPRESSION: Osteopenia Levoscoliosis Chronic T12 compression fracture Reviewed, dictated and finalized at location A. [employer]
== END 2022-04-08 09:21 | disposition home or self-care (01) ==
PROVIDERS: PCP Internal Medicine; Visit Provider Internal Medicine
DX: M85.88 Other specified disorders of bone density and structure, other site (principal); S22.080D Wedge compression fracture of T11-T12 vertebra, subsequent encounter for fracture with routine healing; X58.XXXD Exposure to other specified factors, subsequent encounter
CPT/HCPCS: 72100

== ENCOUNTER 2022-04-22 15:19 | Outpatient (CLI) | payer MEDICARE, OTHER, SELFPAY ==
--- NOTE | ~2022-04-22 | XR_ITS ---
XR chest 2V DATE: 04/22/2022 15:45 INDICATION: Cough TECHNIQUE: PA and lateral views COMPARISON: 05/06/2021 PA and lateral chest FINDINGS: Left dual-lead pacemaker device with leads overlying right atrium and right ventricle. Hear t size is within normal range. Is aortic arch calcification. No hilar or mediastinal enlargement. The lungs are moderately hyperinflated, without infiltrate or consolidation. No pleural effusion or p ulmonary vascular congestion or pneumothorax. Diffuse osteopenia. The thoracic and lumbar scoliosis. There is moderate loss of height and anterior wedging of T6, T8, T9 and T12, and to a lesser extent T 10. Old healed fracture of the sternal body. The vertebral body fractures and old sternal fracture or stable since 04/19/2021. 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 [facility] IMPRESSION: No active cardiopulmonary disease Left dual-lead pacemaker device Osteopenia Chronic compression fracture deformities of the thoracic spine and old healed f racture of the body of the sternum
== END 2022-04-22 15:20 | disposition home or self-care (01) ==
LOC: ANHIMG 15:22
PROVIDERS: PCP Internal Medicine; Visit Provider Nurse Practitioner
DX: R05.9 Cough, unspecified (principal); M85.80 Other specified disorders of bone density and structure, unspecified site; Z95.0 Presence of cardiac pacemaker; M48.54XA Collapsed vertebra, not elsewhere classified, thoracic region, initial encounter for fracture
CPT/HCPCS: 71046

== ENCOUNTER 2022-10-01 08:06 | Outpatient (CLI) | payer MEDICARE, OTHER, SELFPAY ==
[2022-10-01 09:29] LABS: Alanine Aminotransferase 18 U/L (6-35); Albumin Level 4.3 g/dL (3.5-5.1); Alkaline Phosphatase 53 U/L (38-126); Anion Gap 4 mmol/L (8-16); Aspartate Amino Transferase 35 U/L (14-36); Bilirubin,Total 0.6 mg/dL (0.2-1.3); Blood Urea Nitrogen 15 mg/dL (7-17); Calcium 8.9 mg/dL (8.4-10.2); Carbon Dioxide 31 mmol/L (22-30); Chloride 98 mmol/L (98-107); Cholesterol 178 mg/dL (0-200); Estimated Glomerular Filt Rate > 60; Glucose 83 mg/dL (65-110); HDL Direct 97 mg/dL; Potassium 4.4 mmol/L (3.4-5.0); Sodium 133 mmol/L (137-145); Triglycerides 72 mg/dL (<150)
[2022-10-01 09:31] LABS: LDL Cholesterol Direct 68 mg/dL
== END 2022-10-01 08:07 | disposition home or self-care (01) ==
PROVIDERS: PCP Nurse Practitioner; Visit Provider Nurse Practitioner
DX: E78.5 Hyperlipidemia, unspecified (principal)
CPT/HCPCS: 36415; 80053; 80061

== ENCOUNTER 2023-04-02 07:30 | Outpatient (CLI) | payer MEDICARE, OTHER, SELFPAY ==
[2023-04-02 08:24] LABS: Alanine Aminotransferase 15 U/L (6-35); Albumin Level 4.5 g/dL (3.5-5.1); Alkaline Phosphatase 53 U/L (38-126); Anion Gap 9 mmol/L (8-16); Aspartate Amino Transferase 28 U/L (14-36); Bilirubin,Total 0.6 mg/dL (0.2-1.3); Blood Urea Nitrogen 15 mg/dL (7-17); Calcium 9.6 mg/dL (8.4-10.2); Carbon Dioxide 27 mmol/L (22-30); Chloride 99 mmol/L (98-107); Cholesterol 184 mg/dL (0-200); Estimated Glomerular Filt Rate > 60; Glucose 92 mg/dL (65-110); HDL Direct 83 mg/dL; Potassium 4.3 mmol/L (3.4-5.0); Sodium 135 mmol/L (137-145); Triglycerides 62 mg/dL (<150)
[2023-04-02 08:34] LABS: LDL Cholesterol Direct 76 mg/dL
[2023-04-02 08:57] LABS: Vitamin D 25 Hydroxy 47.3 ng/mL
== END 2023-04-02 07:31 | disposition home or self-care (01) ==
PROVIDERS: PCP Family Medicine; Visit Provider Nurse Practitioner
DX: E78.5 Hyperlipidemia, unspecified (principal); E03.9 Hypothyroidism, unspecified; E55.9 Vitamin D deficiency, unspecified
CPT/HCPCS: 36415; 80053; 80061; 82306; 84443

== ENCOUNTER 2023-10-24 08:53 | Outpatient (CLI) | payer MEDICARE, OTHER, SELFPAY ==
[2023-10-24 09:40] LABS: Alanine Aminotransferase 13 U/L (6-35); Alkaline Phosphatase 74 U/L (38-126); Anion Gap 2 mmol/L (4-12); Aspartate Amino Transferase 24 U/L (14-36); Bilirubin,Total 0.4 mg/dL (0.2-1.3); Blood Urea Nitrogen 17 mg/dL (7-17); Calcium 9.2 mg/dL (8.4-10.2); Carbon Dioxide 31 mmol/L (22-30); Chloride 102 mmol/L (98-107); Cholesterol 173 mg/dL (0-200); Estimated Glomerular Filt Rate 54; Glucose 89 mg/dL (65-110); HDL Direct 71 mg/dL; Potassium 4.1 mmol/L (3.4-5.0); Sodium 135 mmol/L (137-145); Triglycerides 72 mg/dL (<150)
[2023-10-24 09:51] LABS: LDL Cholesterol Direct 83 mg/dL
== END 2023-10-24 08:54 | disposition home or self-care (01) ==
LOC: ANHLAB 08:55
PROVIDERS: PCP Nurse Practitioner; Visit Provider Nurse Practitioner
DX: E78.5 Hyperlipidemia, unspecified (principal); E03.9 Hypothyroidism, unspecified
CPT/HCPCS: 36415; 80053; 80061; 84443